=== PATIENT | male | born 1995 | race Caucasian/White ===

== ENCOUNTER → 2022-07-10 | Emergency (ER) | payer OTHER ==
[~2022-07-10] MED LIST: Boostrix 0.5 ML (Tdap) VIAL (>/=7 yrs of age) ONE; HYDROcodone/Acetaminophen 5/325 mg Tablet ONE
== END ==
LOC: NAV ERS 22:48
DX: S80.12XA Contusion of left lower leg, initial encounter (principal); V89.2XXA Person injured in unspecified motor-vehicle accident, traffic, initial encounter
CPT/HCPCS: 90471; 90715; G0390